=== PATIENT | female | born 2005 | race Hispanic/Latino ===

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

== ENCOUNTER 2023-02-26 10:10 | Outpatient (CLI) | payer OTHER | END 2023-02-26 10:11 | disposition home or self-care (01) | LOC: ULT 10:10 | PROVIDERS: ATTEND Family Medicine | DX: E01.0 Iodine-deficiency related diffuse (endemic) goiter (principal); E04.9 Nontoxic goiter, unspecified | CPT/HCPCS: 76536 ==